=== PATIENT | female | born 1985 | race Caucasian/White ===

== ENCOUNTER 2016-06-28 | Outpatient (CLI) | payer OTHER | END 2016-06-28 17:34 | disposition critical access hospital (66) | CPT/HCPCS: A0425; A0429 ==

== ENCOUNTER 2016-06-28 18:03 | Emergency (ER) | payer OTHER ==
[2016-06-28] MEDS ORDERED: LORazepam 2 MG/ML SYRINGE IVP STA (18:27)
[2016-06-28] MEDS ORDERED: SODIUM CHLORIDE 0.9% 1,000 ML IV ONE (18:27)
[2016-06-28] MEDS ORDERED: LORazepam 2 MG/ML SYRINGE ONE (18:40)
[2016-06-28] MEDS ORDERED: POTASSIUM BICARB 25 MEQ TABLET PO STA (19:15)
[2016-06-28] MEDS ORDERED: POTASSIUM BICARB 25 MEQ TABLET PO ONE (19:19)
== END 2016-06-28 19:38 | disposition home or self-care (01) ==
DX: F41.0 Panic disorder [episodic paroxysmal anxiety] (principal); E87.6 Hypokalemia; R03.0 Elevated blood-pressure reading, without diagnosis of hypertension
CPT/HCPCS: 36415; 80053; 82803; 83690; 93005; 93010; 96374; 99284; A9270; J2060

== ENCOUNTER 2016-11-26 13:56 | Outpatient (CLI) | payer OTHER ==
[2016-11-26 17:49] LABS: BASOPHILS % (AUTO) 0.7 %; EOSINOPHILS # (AUTO) 0.1 10^3/uL (0.0-0.7); EOSINOPHILS % (AUTO) 1.5 %; HCT - HEMATOCRIT 42.6 % (37.0-47.0); HGB - HEMOGLOBIN 14.8 g/dL (12.0-16.0); LYMPHOCYTES % (AUTO) 28.5 %; MEAN CORPUSCULAR HEMOGLOBIN 29.4 pg (27.0-31.0); MEAN CORPUSCULAR HGB CONC 34.7 g/dL (32.0-36.0); MEAN CORPUSCULAR VOLUME 84.8 fL (81.0-99.0); MEAN PLATELET VOLUME 8.3 fL (7.9-10.8); MONOCYTES # (AUTO) 0.4 10^3/uL (0.0-1.0); MONOCYTES % (AUTO) 11.3 %; NEUTROPHILS # (AUTO) 2.1 10^3/uL (1.5-6.6); NUCLEATED RED BLOOD CELLS AUTO 0.2 /100WBC; RED BLOOD COUNT 5.02 10^6/uL (4.20-5.40); RED CELL DISTRIBUTION WIDTH 13.1 % (12.0-15.0); UNCORRECTED WHITE BLOOD COUNT 3.6 x10^3/uL; WHITE BLOOD COUNT 3.6 x10^3/uL (4.8-10.8)
[2016-11-26 18:12] LABS: ALBUMIN/GLOBULIN RATIO 1.8 (1.0-2.2); CALCIUM 9.5 mg/dL (8.5-10.3); CREATININE 0.6 mg/dL (0.4-1.0); POTASSIUM 3.3 mmol/L (3.5-5.0); TOTAL PROTEIN 7.2 g/dL (6.7-8.2)
== END 2016-11-26 13:57 | disposition home or self-care (01) ==
LOC: LAB.F 13:56
PROVIDERS: ATTEND Internal Medicine
DX: F42.9 Obsessive-compulsive disorder, unspecified (principal)
CPT/HCPCS: 36415; 80053; 82306; 84443; 85025

== ENCOUNTER 2017-03-31 12:57 | Outpatient (CLI) | payer OTHER | END 2017-03-31 12:58 | disposition home or self-care (01) | LOC: LAB.R 12:57 | PROVIDERS: ATTEND Internal Medicine | DX: J02.9 Acute pharyngitis, unspecified (principal) | CPT/HCPCS: 87070 ==

== ENCOUNTER → 2017-05-08 | Outpatient (CLI) | payer OTHER ==
[2017-05-08 18:46] LABS: BASOPHILS % (AUTO) 0.3 %; EOSINOPHILS % (AUTO) 0.5 %; HCT - HEMATOCRIT 44.6 % (37.0-47.0); HGB - HEMOGLOBIN 15.4 g/dL (12.0-16.0); LYMPHOCYTES # (AUTO) 1.2 10^3/uL (1.5-3.5); LYMPHOCYTES % (AUTO) 17.8 %; MEAN CORPUSCULAR HEMOGLOBIN 29.4 pg (27.0-31.0); MEAN CORPUSCULAR HGB CONC 34.4 g/dL (32.0-36.0); MEAN CORPUSCULAR VOLUME 85.2 fL (81.0-99.0); MEAN PLATELET VOLUME 8.6 fL (7.9-10.8); MONOCYTES # (AUTO) 0.3 10^3/uL (0.0-1.0); MONOCYTES % (AUTO) 4.6 %; NEUTROPHILS % (AUTO) 76.8 %; NUCLEATED RED BLOOD CELLS AUTO 0.1 /100WBC; RED BLOOD COUNT 5.23 10^6/uL (4.20-5.40); RED CELL DISTRIBUTION WIDTH 13.1 % (12.0-15.0); UNCORRECTED WHITE BLOOD COUNT 6.5 x10^3/uL; WHITE BLOOD COUNT 6.5 x10^3/uL (4.8-10.8)
== END ==
LOC: LAB.F 13:52
PROVIDERS: ATTEND Nurse Practitioner Family
DX: R07.9 Chest pain, unspecified (principal); E87.6 Hypokalemia
CPT/HCPCS: 36415; 84132; 84443; 85025

== ENCOUNTER 2017-05-11 13:23 | Outpatient (CLI) | payer OTHER | END 2017-05-11 13:24 | disposition EMS.NT | LOC: EMS 13:23 | PROVIDERS: ATTEND Surgery | DX: R07.89 Other chest pain (principal) ==

== ENCOUNTER 2017-05-29 10:11 | Outpatient (CLI) | payer OTHER ==
[2017-05-29 18:42] LABS: CHOL/HDL RATIO 4.7 (<4.4); CHOLESTEROL 202 mg/dL; HDL CHOLESTEROL 43 mg/dL; LDL/HDL RATIO 3.4 (<4.4); TRIGLYCERIDES 56 mg/dL; VLDL CHOLESTEROL 11 mg/dL
[2017-05-29 19:35] LABS: HEMOGLOBIN A1C 0.47 g/dL
== END 2017-05-29 10:12 | disposition home or self-care (01) ==
LOC: LAB.F 10:11
PROVIDERS: ATTEND Obstetrics & Gynecology
DX: Z13.1 Encounter for screening for diabetes mellitus (principal)
CPT/HCPCS: 36415; 80061; 83036; 84443

== ENCOUNTER 2017-06-22 13:53 | Outpatient (CLI) | payer OTHER ==
--- NOTE | 2017-06-22 17:33 | Ultrasound Report ---
DATE OF SERVICE: 06/22/2017 RIGHT BREAST ULTRASOUND: 06/22/2017 CLINICAL INDICATION: Tender palpable abnormality lateral right breast. TECHNIQUE: Real-time scanning was performed with customer sales representative static images obtained. FINDINGS: Ultrasound of the region of tenderness identified by the patient was performed. Unremarkable parenchymal lobules are seen. No discrete solid or cystic lesion is appreciated. No sonographically suspicious findings are identified. IMPRESSION: NEGATIVE EXAMINATION. RECOMMENDATION: ROUTINE ANNUAL SCREENING UNLESS OTHERWISE CLINICALLY INDICATED (PATIENT'S MOTHER DIAGNOSED WITH BREAST CANCER AT AGE 34). BIRADS CATEGORY 1-NEGATIVE. TD: 06/22/2017 18:32 [email or web address]
--- NOTE | 2017-06-22 17:39 | Mammography Report ---
DATE OF SERVICE: 06/22/2017 DIGITAL DIAGNOSTIC BILATERAL MAMMOGRAM: 06/22/2017 CLINICAL INDICATION: Tender palpable abnormality 9 o'clock right breast per patient. TECHNIQUE: Bilateral CC, MLO, laterally exaggerated CC views, right true lateral view. A marker was placed at the site of the tender palpable abnormality identified by the patient. This is the patient's baseline mammogram. FINDINGS: The breasts demonstrate heterogeneously dense fibroglandular parenchyma bilaterally. No suspicious masses, clustered microcalcifications, or regions of architectural distortion are identified. Specifically, no mammographic abnormality is appreciated at the 9 o'clock position of the right breast, at the site indicated by the marker. Please also refer to right breast ultrasound of the same day. IMPRESSION: NEGATIVE EXAMINATION. RECOMMENDATION: ROUTINE ANNUAL SCREENING UNLESS OTHERWISE CLINICALLY INDICATED (PATIENT'S MOTHER DIAGNOSED WITH BREAST CANCER AT AGE 34). BIRADS CATEGORY 1-NEGATIVE. STANDARD QUALIFYING STATEMENTS: 1. This examination was reviewed with the aid of Computer-Aided Detection (CAD). 2. A negative or benign imaging report should not delay biopsy if clinically suspicious findings are present. Consider surgical consultation if warranted. More than 5% of cancers are not identified by imaging. 3. Dense breasts may obscure an underlying neoplasm. TD: 06/22/2017 18:38
== END 2017-06-22 13:54 | disposition home or self-care (01) ==
LOC: DI 13:53
PROVIDERS: ATTEND Obstetrics & Gynecology
DX: N63.10 Unspecified lump in the right breast, unspecified quadrant (principal)
CPT/HCPCS: 76642; 77066

== ENCOUNTER 2017-06-26 11:15 | Outpatient (CLI) | payer OTHER | END 2017-06-26 11:16 | disposition home or self-care (01) | LOC: NS 11:15 | PROVIDERS: ATTEND Obstetrics & Gynecology | DX: Z71.3 Dietary counseling and surveillance (principal); R73.09 Other abnormal glucose; E78.5 Hyperlipidemia, unspecified; Z68.25 Body mass index [BMI] 25.0-25.9, adult | CPT/HCPCS: 97802 ==

== ENCOUNTER 2017-10-21 08:00 | Outpatient (CLI) | payer OTHER ==
[2017-10-22 10:45] LABS: ALBUMIN 4.5 g/dL (3.2-5.5); ALBUMIN/GLOBULIN RATIO 1.6 (1.0-2.2); BILIRUBIN,TOTAL 0.9 mg/dL (0.2-1.0); CALCIUM 9.4 mg/dL (8.5-10.3); CREATININE 0.4 mg/dL (0.4-1.0); TOTAL PROTEIN 7.3 g/dL (6.7-8.2)
[2017-10-22 10:47] LABS: BASOPHILS % (AUTO) 0.4 %; EOSINOPHILS # (AUTO) 0.1 10^3/uL (0.0-0.7); EOSINOPHILS % (AUTO) 1.2 %; HGB - HEMOGLOBIN 14.2 g/dL (12.0-16.0); LYMPHOCYTES # (AUTO) 1.7 10^3/uL (1.5-3.5); LYMPHOCYTES % (AUTO) 26.3 %; MEAN CORPUSCULAR HEMOGLOBIN 29.5 pg (27.0-31.0); MEAN CORPUSCULAR HGB CONC 34.3 g/dL (32.0-36.0); MEAN CORPUSCULAR VOLUME 85.8 fL (81.0-99.0); MEAN PLATELET VOLUME 8.6 fL (7.9-10.8); MONOCYTES # (AUTO) 0.3 10^3/uL (0.0-1.0); MONOCYTES % (AUTO) 4.6 %; NEUTROPHILS # (AUTO) 4.5 10^3/uL (1.5-6.6); NEUTROPHILS % (AUTO) 67.5 %; PLT - PLATELET COUNT 252 10^3/uL (130-450); RED BLOOD COUNT 4.81 10^6/uL (4.20-5.40); RED CELL DISTRIBUTION WIDTH 13.8 % (12.0-15.0); WHITE BLOOD COUNT 6.7 x10^3/uL (4.8-10.8)
== END 2017-10-21 08:01 | disposition home or self-care (01) ==
LOC: LAB.F 08:00
PROVIDERS: ATTEND Physician Assistant Medical
DX: R53.83 Other fatigue (principal); R42 Dizziness and giddiness; Z86.39 Personal history of other endocrine, nutritional and metabolic disease
CPT/HCPCS: 36415; 80053; 84443; 85025

== ENCOUNTER 2017-11-15 13:55 | Outpatient (CLI) | payer OTHER ==
--- NOTE | 2017-11-15 14:51 | XRAY Report ---
EXAM: CHEST RADIOGRAPHY EXAM DATE: 11/15/2017 02:18 PM. CLINICAL HISTORY: DYSPNEA ON EXERTION. COMPARISON: None. TECHNIQUE: 2 views. FINDINGS: Lungs/Pleura: No dense consolidation. No large effusion or pneumothorax. No pulmonary edema. Mediastinum: Heart and mediastinal contours are unremarkable. Other: None. IMPRESSION: No acute radiographic pulmonary abnormalities. [facility] Referring Provider Line: [phone] SITE ID: [id number]
== END 2017-11-15 13:56 | disposition home or self-care (01) ==
LOC: DI 13:55
PROVIDERS: ATTEND Internal Medicine
DX: R06.00 Dyspnea, unspecified (principal)
CPT/HCPCS: 71046

== ENCOUNTER 2017-11-29 08:11 | Outpatient (CLI) | END 2017-11-29 08:12 | disposition home or self-care (01) ==

== ENCOUNTER 2018-04-21 14:58 | Outpatient (CLI) | payer MEDICAID ==
--- NOTE | 2018-04-22 09:06 | Ultrasound Report ---
Reason: ABDOMINAL PULSATILE MASS, VENTRAL HERNIA, BACK THOM Procedure Date: 04/21/2018 Accession Number: [id number] / [id number] Procedure: US - Abdomen Complete CPT Code: FULL RESULT: EXAM: ABDOMEN ULTRASOUND EXAM DATE: 04/21/2018 03:21 PM. CLINICAL HISTORY: Abdominal pulsatile mass, ventral hernia, back pain. COMPARISON: None. TECHNIQUE: Real-time scanning was performed with static images obtained. FINDINGS: Liver: Normal in size and echotexture. 13.3 cm. Main portal vein flow: Hepatopetal. Gallbladder: Normal. No stones, wall thickening, or sonographic Thompson's sign. Biliary System: Common bile duct measures 3.1 mm. No intrahepatic or extrahepatic ductal dilatation. Pancreas: Visualized portion is unremarkable. Kidneys: Right: 10.3 cm longitudinally. Normal. No contour-deforming mass, stones, or hydronephrosis. Left: 11.1 cm longitudinally. Normal. No contour-deforming mass, stones, or hydronephrosis. Spleen: 9.7 x 5.3 x 5.6 cm. Normal in size and echotexture. Aorta and Inferior Vena Cava: Unremarkable. Other: Provided sonographic images are measuring a focal area of fat which is traversing a fascial plane external to the abdominal wall; this is described on bottom stainer notes as representing an abdominal wall hernia. The visualized abdominal wall appears intact on these ultrasound images. IMPRESSION: Normal abdomen ultrasound. If there is persistent clinical concern of abdominal wall hernia, consider CT. [facility]
== END 2018-04-21 14:59 | disposition home or self-care (01) ==
LOC: DI 14:58
PROVIDERS: ATTEND Physician Assistant Medical
DX: R09.89 Other specified symptoms and signs involving the circulatory and respiratory systems (principal); K43.9 Ventral hernia without obstruction or gangrene; M54.5 Low back pain; R10.9 Unspecified abdominal pain
CPT/HCPCS: 76700

== ENCOUNTER 2019-06-17 08:00 | Outpatient (CLI) | payer SELFPAY | END 2019-06-17 23:59 | disposition home or self-care (01) | LOC: LAB.R 08:00 | PROVIDERS: ATTEND Physician Assistant Medical | DX: R10.11 Right upper quadrant pain (principal) | CPT/HCPCS: 87086 ==

== ENCOUNTER 2019-06-25 10:55 | Outpatient (CLI) | payer SELFPAY ==
--- NOTE | 2019-06-26 16:26 | Ultrasound Report ---
Reason: FLANK PAIN RT, CONTUSION OF ABD WALL Procedure Date: 06/25/2019 Accession Number: [id number] / [id number] Procedure: US - Abdomen Limited CPT Code: Final Report FULL RESULT: EXAM: ULTRASOUND ABDOMEN LIMITED, RIGHT UPPER QUADRANT AND PELVIS/RIGHT ABDOMINAL WALL LIMITED EXAM DATE: 06/25/2019 12:30 PM HISTORY: FLANK PAIN RT, CONTUSION OF ABD WALL COMPARISON: ABDOMEN COMPLETE 04/21/2018 3:21 PM TECHNIQUE: Real-time scanning was performed with static images obtained. FINDINGS: Pancreas: Visualized portion is unremarkable. Liver: Mildly coarsened echotexture might be from the steatosis. No focal lesions. Length is 14.5 cm. Main portal vein flow: Hepatopetal. Gallbladder: Normal. No stones, wall thickening, or sonographic Thompson's sign. Biliary Ducts: Common bile duct measures 4.1 mm. No intrahepatic or extrahepatic ductal dilatation. Right Kidney: 10.1 cm longitudinally. Normal. No contour-deforming mass, stones, or hydronephrosis. Other: In the area of concern at the anterior abdominal wall towards the right side there are homogeneous tissues. No fluid collection, mass lesion or large tissue defect is identified. No apparent hernia identified. IMPRESSION: Possible mild hepatic steatosis. Otherwise unremarkable right upper quadrant ultrasound. Essentially unremarkable mid/right lower abdominal wall. [facility]
== END 2019-06-25 10:56 | disposition home or self-care (01) ==
LOC: DI 10:55
PROVIDERS: ATTEND Physician Assistant Medical
DX: R10.9 Unspecified abdominal pain (principal); S30.1XXA Contusion of abdominal wall, initial encounter
CPT/HCPCS: 76705

== ENCOUNTER 2019-10-05 01:08 | Emergency (ER) | payer SELFPAY ==
--- NOTE | 2019-10-05 01:19 | ED Physician Documentation ---
History of Present Illness - Stated complaint Stated Complaint: CHEST PRESSURE/ICY/HOT LT ARM/AXIETY - Chief complaint Chief Complaint: Heent - History obtained from History obtained from: Patient (The patient is a 34-year-old female who presents with a chief complaint of anxiety and panic attack.The patient reports she recently was given a prescription by her primary care provider for Ativan however she has been unable to fill this prescription tonight she is feeling some feelings of panic and anxiety she denies any auditory or suicidal thoughts denies any syncope or lower extremity swelling denies any exogenous estrogen use no history of pulmonary embolism or DVT denies any recent periods of stasis or surgeries denies any personal family history of hypercoagulability. Denies any illicit drug use.Denies any history of VT or stroke. Denies any recent cough or fevers.) Review of Systems Constitutional: reports: Reviewed and negative Eyes: reports: Reviewed and negative Ears: reports: Reviewed and negative Nose: reports: Reviewed and negative Throat: reports: Reviewed and negative Cardiac: reports: Palpitations Respiratory: reports: Reviewed and negative GI: reports: Reviewed and negative : reports: Reviewed and negative Skin: reports: Reviewed and negative Musculoskeletal: reports: Reviewed and negative Neurologic: reports: Reviewed and negative Psychiatric: reports: Anxiety Endocrine: reports: Reviewed and negative Immunocompromised: reports: Reviewed and negative PD PAST MEDICAL HISTORY - Past Medical History Cardiovascular: None Respiratory: None Neuro: None Endocrine/Autoimmune: None Psych: Depression, Anxiety, Post traumatic stress disorder - Past Surgical History Past Surgical History: Yes HEENT: Tonsil/Adenoidectomy - Present Medications Home Medications: Ambulatory Orders Medication Instructions Recorded Confirmed Lorazepam [Ativan] 1 mg PO TID PRN #7 tablet 06/28/16 Sertraline [Zoloft] 1 tab PO DAILY 06/01/18 06/01/18 Hydrocodone/Acetaminophen [Ovid 1 each PO Q6H PRN #12 tablet 06/02/18 5-325 Tablet] Ondansetron Odt [Zofran] 4 mg TL Q6H PRN #10 tablet 06/02/18 dexAMETHasone [Decadron] 4 mg PO DAILY #5 tablet 06/02/18 - Allergies Allergies/Adverse Reactions: Allergies Allergy/AdvReac Type Severity Reaction Status Date / Time codeine AdvReac Emesis Verified 10/05/19 01:19 - Social History Does the pt smoke?: No Smoking Status: Never smoker Does the pt drink ETOH?: Yes Does the pt have substance abuse?: No PD ED PE NORMAL - Vitals Vital signs reviewed: Yes - General General: Alert and oriented X 3, No acute distress, Well developed/nourished - HEENT HEENT: Atraumatic, PERRL, Moist mucous membranes, Pharynx benign - Neck Neck: Supple, no meningeal sign, No adenopathy, Thyroid normal - Cardiac Cardiac: RRR, No murmur, Strong equal pulses - Respiratory Respiratory: No respiratory distress, Clear bilaterally - Abdomen Abdomen: Normal bowel sounds, Soft, Non tender, Non distended, No organomegaly - Back Back: No CVA TTP, No spinal TTP - Derm Derm: Normal color, Warm and dry, No rash - Extremities Extremities: No deformity, No tenderness to palpate, Normal ROM s pain, No edema, No calf tenderness / cord - Neuro Neuro: Alert and oriented X 3, 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, No motor deficit, No sensory deficit, Normal speech - Psych Psych: Other (anxious) Results - Vitals Vitals: Vital Signs - 24 hr 10/05/19 10/05/19 10/05/19 01:16 02:05 02:15 Heart Rate 87 77 Respiratory 16 17 17 Rate Blood Pressure 141/109 H 127/98 H O2 Saturation 99 100 10/05/19 10/05/19 10/05/19 02:45 03:15 03:18 Heart Rate 72 Respiratory 15 16 16 Rate Blood Pressure 122/92 H O2 Saturation 99 Oxygen O2 Source Room air - EKG (time done) 01:34 Rate: Other (no stemi) PD MEDICAL DECISION MAKING - ED course Complexity details: considered differential (History and exam are consistent with panic attack and anxiety chest x-ray is unremarkable EKG is unremarkable patient has good follow-up with her primary care provider tomorrow.Her heart score is 0 and her PERC is 0.) Departure - Departure Disposition: 01 Home, Self Care Clinical Impression: Anxiety Condition: Stable Instructions: ED Panic Attack Follow-Up: Jane Santana ARNP [Primary Care Provider] - 10/05/19 Discharge Date/Time: 10/05/19 03:28
[2019-10-05] MEDS ORDERED: LORazepam 1 MG TABLET PO STA (01:59)
--- NOTE | 2019-10-05 02:45 | XRAY Report ---
Reason: cp Procedure Date: 10/05/2019 Accession Number: [id number] / [id number] Procedure: XR - Chest 2 View X-Ray CPT Code: 37676 Final Report FULL RESULT: EXAM: CHEST RADIOGRAPHY EXAM DATE: 10/05/2019 02:29 AM. CLINICAL HISTORY: Chest pain COMPARISON: CHEST 2 VIEW 11/15/2017 2:10 PM. TECHNIQUE: 2 views. FINDINGS: Lungs/Pleura: No focal opacities evident. No pleural effusion. No pneumothorax. Normal volumes. Mediastinum: Heart and mediastinal contours are unremarkable. Other: None. IMPRESSION: Stable negative 2-view chest radiography. [facility]
[2019-10-05 03:16] VITALS: BP 122/92
== END 2019-10-05 03:28 | disposition home or self-care (01) ==
LOC: ED 01:08
DX: F41.9 Anxiety disorder, unspecified (principal)
CPT/HCPCS: 71046; 93005; 99283; 99284; J8499

== ENCOUNTER 2020-03-02 04:05 | Emergency (ER) | payer SELFPAY ==
--- NOTE | 2020-03-02 04:14 | ED Physician Documentation ---
History of Present Illness - Stated complaint Stated Complaint: SOA - History obtained from History obtained from: Patient - Additonal information Additional information: Patient is a 34-year-old female presents with multiple complaints today. She reports that she has been having back pain and she is been going to the chiropractor where she has been receiving thoracic adjustments and is now complaining of pain that radiates to her left arm and an overall sensation of not feeling well. She denies fevers or lower extremity swelling or hemoptysis or any history of pulmonary embolism or DVT. Occasionally she feels lightheaded without a headache and reports occasional nausea as well.She reports she has a history of anxiety and at one point had been taking sertraline but currently is not taking any daily medications.She reports in the past she has had episodes of low potassium that is caused her to have a similar feeling.Denies vomiting denies alcohol or drug use.Denies any family history of sudden in mother, father, brother sister. Review of Systems Constitutional: reports: Chills, Myalgias, Fatigue Eyes: reports: Reviewed and negative Ears: reports: Reviewed and negative Nose: reports: Reviewed and negative Throat: reports: Reviewed and negative Cardiac: reports: Palpitations Respiratory: reports: Dyspnea GI: reports: Nausea : reports: Reviewed and negative Skin: reports: Reviewed and negative Musculoskeletal: reports: Extremity pain Neurologic: reports: Generalized weakness Psychiatric: reports: Reviewed and negative Endocrine: reports: Reviewed and negative Immunocompromised: reports: Reviewed and negative PD PAST MEDICAL HISTORY - Past Medical History Cardiovascular: None Respiratory: None Neuro: None Endocrine/Autoimmune: None GI: GERD SOFTWARE SALES MANAGER: None : None HEENT: None Psych: Depression, Anxiety, Post traumatic stress disorder Musculoskeletal: None Derm: None - Past Surgical History Past Surgical History: Yes HEENT: Tonsil/Adenoidectomy - Present Medications Home Medications: Ambulatory Orders Medication Instructions Recorded Confirmed Lorazepam [Ativan] 1 mg PO TID PRN #7 tablet 06/28/16 Sertraline [Zoloft] 1 tab PO DAILY 06/01/18 06/01/18 Hydrocodone/Acetaminophen [[place] 1 each PO Q6H PRN #12 tablet 06/02/18 5-325 Tablet] Ondansetron Odt [Zofran] 4 mg TL Q6H PRN #10 tablet 06/02/18 dexAMETHasone [Decadron] 4 mg PO DAILY #5 tablet 06/02/18 - Allergies Allergies/Adverse Reactions: Allergies Allergy/AdvReac Type Severity Reaction Status Date / Time codeine AdvReac Emesis Verified 03/02/20 04:20 - Social History Does the pt smoke?: No Smoking Status: Never smoker Does the pt drink ETOH?: Yes Does the pt have substance abuse?: No - Immunizations Immunizations are current?: No - POLST Patient has POLST: No PD ED PE NORMAL - Vitals Vital signs reviewed: Yes - General General: Alert and oriented X 3, No acute distress, Well developed/nourished - HEENT HEENT: Atraumatic, PERRL, EOMI, Ears normal, Moist mucous membranes, Pharynx benign, Dentition benign - Neck Neck: Supple, no meningeal sign, No bony TTP, No adenopathy, Thyroid normal, No JVD, No bruit - Cardiac Cardiac: RRR, No murmur, No gallop, No rub, Strong equal pulses - Respiratory Respiratory: No respiratory distress, Clear bilaterally - Abdomen Abdomen: Normal bowel sounds, Soft, Non tender, Non distended, No organomegaly - Back Back: No CVA TTP, No spinal TTP - Derm Derm: Normal color, Warm and dry, No rash - Extremities Extremities: No deformity, No tenderness to palpate, Normal ROM s pain, No edema, No calf tenderness / cord - Neuro Neuro: Alert and oriented X 3, 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 ) - Labs Labs: Laboratory Tests 03/02/20 03/02/20 03/02/20 04:50 04:50 04:50 WBC 5.3 RBC 4.88 Hgb 14.9 Hct 41.4 MCV 84.8 MCH 30.5 MCHC 36.0 RDW 11.9 L Plt Count 222 MPV 10.0 Neut # (Auto) 3.4 Lymph # (Auto) 1.4 L [place] # (Auto) 0.4 Eos # (Auto) 0.1 Baso # (Auto) 0.0 Absolute Nucleated RBC 0.00 Nucleated RBC % 0.0 PT 12.9 H INR 1.2 APTT 29.7 D-Dimer 216.6 Sodium 137 Potassium 3.2 L Chloride 108 Carbon Dioxide 20 L Anion Gap 9.0 BUN 14 Creatinine 0.6 Estimated GFR (MDRD) 114 Glucose 103 H Calcium 9.4 Magnesium 1.9 Total Bilirubin 0.9 AST 36 ALT 76 H Alkaline Phosphatase 37 L Troponin I High Sens Total Protein 7.4 Albumin 4.8 Globulin 2.6 Albumin/Globulin Ratio 1.8 Lipase 31 Urine Color Urine Clarity Urine pH Ur Specific [place] Urine Protein Urine Glucose (UA) Urine Ketones Urine Occult Blood Urine Nitrite Urine Bilirubin Urine Urobilinogen Ur Leukocyte Esterase Ur Microscopic Review Urine Culture Comments Urine HCG, Qual 03/02/20 03/02/20 04:50 04:50 WBC RBC Hgb Hct MCV MCH MCHC RDW Plt Count MPV Neut # (Auto) Lymph # (Auto) [place] # (Auto) Eos # (Auto) Baso # (Auto) Absolute Nucleated RBC Nucleated RBC % PT INR APTT D-Dimer Sodium Potassium Chloride Carbon Dioxide Anion Gap BUN Creatinine Estimated GFR (MDRD) Glucose Calcium Magnesium Total Bilirubin AST ALT Alkaline Phosphatase Troponin I High Sens < 2.3 L Total Protein Albumin Globulin Albumin/Globulin Ratio Lipase Urine Color YELLOW Urine Clarity CLEAR Urine pH 6.0 Ur Specific [place] <=1.005 Urine Protein NEGATIVE Urine Glucose (UA) NEGATIVE Urine Ketones TRACE Urine Occult Blood NEGATIVE Urine Nitrite NEGATIVE Urine Bilirubin NEGATIVE Urine Urobilinogen 0.2 (NORMAL) Ur Leukocyte Esterase NEGATIVE Ur Microscopic Review NOT INDICATED Urine Culture Comments NOT INDICATED Urine HCG, Qual NEGATIVE PD MEDICAL DECISION MAKING - ED course Complexity details: reviewed old records, reviewed results, re-evaluated patient, considered differential, d/w patient, d/w family ED course: Patient is an otherwise healthy 34-year-old female presents with vague symptoms to include some left arm and back pain after she went to a chiropractor also some generalized weakness she reports it feels similar to when she had an episode of low potassium previously. Her potassium is 3.2 today it was replaced orally and she is tolerated p.o. challenge she also is complaining of feeling dehydrated she did receive 1 L of IV fluids she has a steady gait she is afebrile and has good follow-up care. She has a negative chest x-ray negative EKG and negative troponin as well as a negative d-dimer.We will have the patient follow-up with her primary care provider today. Departure - Departure Disposition: Home, Self Care Clinical Impression: Hypokalemia Condition: Stable Instructions: Hypokalemia Dc Follow-Up: Jane Santana ARNP [Primary Care Provider] - 03/02/20 Comments: Please follow-up with your primary care provider today. Return to the emergency department with any concerns. Discharge Date/Time: 03/02/20 05:51
[2020-03-02] MEDS ORDERED: SODIUM CHLORIDE 0.9% 1,000 ML IV STA (04:32)
[2020-03-02 04:57] LABS: BASOPHILS % (AUTO) 0.4 %; EOSINOPHILS # (AUTO) 0.1 10^3/uL (0.0-0.7); EOSINOPHILS % (AUTO) 1.7 %; HGB - HEMOGLOBIN 14.9 g/dL (12.0-16.0); LYMPHOCYTES # (AUTO) 1.4 10^3/uL (1.5-3.5); LYMPHOCYTES % (AUTO) 27.1 %; MEAN CORPUSCULAR HEMOGLOBIN 30.5 pg (27.0-31.0); MEAN CORPUSCULAR VOLUME 84.8 fL (81.0-99.0); MONOCYTES # (AUTO) 0.4 10^3/uL (0.0-1.0); MONOCYTES % (AUTO) 7.5 %; NEUTROPHILS # (AUTO) 3.4 10^3/uL (1.5-6.6); NEUTROPHILS % (AUTO) 63.1 %; PLT - PLATELET COUNT 222 10^3/uL (130-450); RED BLOOD COUNT 4.88 10^6/uL (4.20-5.40); RED CELL DISTRIBUTION WIDTH 11.9 % (12.0-15.0); WHITE BLOOD COUNT 5.3 x10^3/uL (4.8-10.8)
[2020-03-02 05:02] LABS: BILIRUBIN,URINE NEGATIVE (NEGATIVE); CLARITY,URINE CLEAR (CLEAR); GLUCOSE, URINE (UA) NEGATIVE (NEGATIVE); KETONES,URINE (UA) TRACE mg/dL (NEGATIVE); LEUKOCYTE ESTERASE, URINE NEGATIVE (NEGATIVE); NITRITE,URINE NEGATIVE (NEGATIVE); OCCULT BLOOD,URINE NEGATIVE (NEGATIVE); PROTEIN,URINE NEGATIVE (NEGATIVE); UROBILINOGEN,URINE 0.2 (NORMAL) E.U./dL (NORMAL)
[2020-03-02 05:04] LABS: HCG UR QUAL NEGATIVE
[2020-03-02 05:09] LABS: ALBUMIN 4.8 g/dL (3.2-5.5); ALBUMIN/GLOBULIN RATIO 1.8 (1.0-2.2); BILIRUBIN,TOTAL 0.9 mg/dL (0.2-1.0); CALCIUM 9.4 mg/dL (8.5-10.3); CREATININE 0.6 mg/dL (0.4-1.0); MAGNESIUM 1.9 mg/dL (1.7-2.8); TOTAL PROTEIN 7.4 g/dL (6.7-8.2)
[2020-03-02] MEDS ORDERED: POTASSIUM CHLORIDE 20 MEQ TABLET PO STA (05:15)
[2020-03-02 05:19] LABS: INR 1.2 (0.8-1.2); PT - PROTHROMBIN TIME 12.9 secs (9.9-12.6)
[2020-03-02 05:27] LABS: PARTIAL THROMBOPLASTIN TIME 29.7 secs (24.9-33.3)
[2020-03-02 05:33] LABS: D-DIMER 216.6 ng/mL (200.0-255.0)
[2020-03-02 05:51] VITALS: BP 134/88
--- NOTE | 2020-03-02 08:37 | XRAY Report ---
PROCEDURE: Chest 1 View X-Ray INDICATIONS: sob TECHNIQUE: One view of the chest was acquired. COMPARISON: 10/05/2019 FINDINGS: Surgical changes and devices: None. Lungs and pleura: No pleural effusions or pneumothorax. Lungs are clear. Mediastinum: Mediastinal contours appear normal. Heart size is normal. Bones and chest wall: No suspicious bony lesions. Overlying soft tissues appear unremarkable. IMPRESSION: No acute cardiopulmonary disease process. Reviewed by: Swapna Rosales MD, PhD on 03/02/2020 8:36 AM PDT Approved by: Swapan Rosales MD, PhD on 03/02/2020 8:36 AM PDT Station ID: [id number]
== END 2020-03-02 05:51 | disposition home or self-care (01) ==
LOC: ED 04:05
DX: E87.6 Hypokalemia (principal)
CPT/HCPCS: 36415; 71045; 80053; 81003; 81025; 83690; 83735; 84484; 85025; 85379; 85610; 85730; 93005; 96360; 99284; A9270; 81001; 87086

== ENCOUNTER 2020-07-05 01:25 | Emergency (ER) | payer OTHER ==
--- NOTE | 2020-07-05 01:39 | ED Physician Documentation ---
PD HPI DYSPNEA - Stated complaint Stated Complaint: SOA - Chief complaint Chief Complaint: Cardiac - History obtained from History obtained from: Patient - History of Present Illness Timing - onset: How many hours ago (1) Timing - duration: Hours (1) Timing - details: Abrupt onset (She awoke from sleep with feeling of chest tightness/ dyspnea, and some upper abd discomfort. Not pain per se. Fluttering feeling in chest. Had some feeling of fullness in stomach earlier in evening with some feeling of anxious. But was feeling okay at time of going to sleep.) Inciting event(s): No: Out of meds (denies current benzo/antidepressant Rx), URI Improved by: Sitting up (initially needed to sit up to feel better, subsequently did not worsen lying back down. But not improved.) Associated symptoms: No: Fever, Cough, Hemoptysis, Wheezing, Bilateral edema, Unilateral edema Similar symptoms before: No diagnosis (has had panic attacks in the past, but this felt different and occured from sleep, which has not happened in the past.) Recently seen: Not recently seen Review of Systems Constitutional: denies: Fever, Chills Nose: denies: Rhinorrhea / runny nose, Congestion Throat: denies: Sore throat Cardiac: reports: Palpitations. denies: Pedal edema, Calf pain Respiratory: denies: Cough GI: reports: Nausea. denies: Vomiting, Diarrhea Skin: denies: Rash, Lesions PD PAST MEDICAL HISTORY - Past Medical History Past Medical History: Yes Cardiovascular: None Respiratory: None Neuro: None Endocrine/Autoimmune: None GI: [employer]: None : None HEENT: None Psych: Depression, Anxiety, Post traumatic stress disorder Musculoskeletal: None Derm: None - Past Surgical History Past Surgical History: Yes HEENT: Tonsil/Adenoidectomy - Present Medications Home Medications: Ambulatory Orders Medication Instructions Recorded Confirmed Famotidine [Pepcid] 20 mg PO DAILY #20 tablet 07/05/20 - Allergies Allergies/Adverse Reactions: Allergies Allergy/AdvReac Type Severity Reaction Status Date / Time codeine AdvReac Emesis Verified 07/05/20 01:37 - Living Situation Living Situation: reports: With spouse/s.o. Living Arrangement: reports: At home - Social History Does the pt smoke?: No Smoking Status: Never smoker Does the pt drink ETOH?: Yes ETOH Use: Other (occasional) Does the pt have substance abuse?: No - Immunizations Immunizations are current?: No - POLST Patient has POLST: No PD ED PE NORMAL - Vitals Vital signs reviewed: Yes - General General: Alert and oriented X 3, No acute distress, Well developed/nourished - HEENT HEENT: Moist mucous membranes, Pharynx benign - Neck Neck: Supple, no meningeal sign, No adenopathy - Cardiac Cardiac: RRR, No murmur - Respiratory Respiratory: Clear bilaterally - Abdomen Abdomen: Normal bowel sounds, Soft, Non distended, No organomegaly, Other (mild epigasric tenderness without guarding. ) - Back Back: No CVA TTP - Derm Derm: Normal color, Warm and dry - Extremities Extremities: No tenderness to palpate, Normal ROM s pain, No edema, No calf tenderness / cord - Neuro Neuro: Alert and oriented X 3, No motor deficit, Normal speech - Psych Psych: Normal mood, Normal affect Results - Vitals Vitals: Vital Signs - 24 hr 07/05/20 07/05/20 07/05/20 01:33 02:05 02:31 Temperature 36.8 C Heart Rate 75 83 Respiratory 18 16 16 Rate Blood Pressure 137/90 H 110/78 O2 Saturation 95 97 07/05/20 07/05/20 07/05/20 03:07 03:08 03:20 Temperature Heart Rate 79 81 Respiratory 15 15 Rate Blood Pressure 113/84 H O2 Saturation 100 07/05/20 03:26 Temperature 36.8 C Heart Rate 81 Respiratory 15 Rate Blood Pressure 113/84 H O2 Saturation 100 Oxygen O2 Source Room air - EKG (time done) 01:37 Rate: Rate (enter#) (91) Rhythm: NSR [place]: Normal Intervals: Normal AR QRS: Normal Ischemia: Normal ST segments. No: ST elevation c/w ischemia, ST depression - Labs Labs: Laboratory Tests 07/05/20 07/05/20 02:12 02:12 WBC 6.1 RBC 4.67 Hgb 14.1 Hct 39.9 MCV 85.4 MCH 30.2 MCHC 35.3 RDW 12.2 Plt Count 215 MPV 9.5 Neut # (Auto) 3.7 Lymph # (Auto) 1.7 [place] # (Auto) 0.5 Eos # (Auto) 0.1 Baso # (Auto) 0.0 Absolute Nucleated RBC 0.00 Nucleated RBC % 0.0 Sodium 142 Potassium 3.3 L Chloride 104 Carbon Dioxide 23 Anion Gap 15.0 H BUN 18 Creatinine 0.6 Estimated GFR (MDRD) 114 Glucose 103 H Calcium 9.4 Total Bilirubin 0.7 AST 24 ALT 38 Alkaline Phosphatase 37 L Total Protein 7.0 Albumin 4.5 Globulin 2.5 Albumin/Globulin Ratio 1.8 Lipase 33 - Rads (name of study) RUQ abd U/S Radiology: Prelim report reviewed (no acute findings. No stones. Normal gall bladder. ), See rad report PD MEDICAL DECISION MAKING - ED course Complexity details: reviewed results, re-evaluated patient (improved with some GI meds. ), considered differential (prior episodes with normal EKGs. Had ECHO 2018 that was normal. No findings of heart/pulmonary on prior visits. ), d/w patient Departure - Departure Disposition: 01 Home, Self Care Clinical Impression: Epigastric discomfort Dyspnea Qualifiers: Dyspnea type: shortness of breath Qualified Code(s): R06.02 - Shortness of breath Condition: Stable Record reviewed to determine appropriate education?: Yes Instructions: ED Epigastric Pain [facility] Follow-Up: Jane Santana ARNP [Primary Care Provider] - Prescriptions: Famotidine [Pepcid] 20 mg PO DAILY #20 tablet Comments: Your EKG and vital signs and blood tests appear good. Ultrasound did not show any signs of gallbladder problems. At this point there is not an obvious cause or diagnosis for the episode you had. My thought would be possibly some acid reflux and esophageal spasm based on the symptoms, given that other tests are okay. I would suggest using famotidine acid reducing medicine daily for the next 2 to 3 weeks. If you have similar episodes, you can try antacids such as Maalox or Mylanta and see if that helps. Otherwise follow-up with your primary care if further episodes. Discharge Date/Time: 07/05/20 03:29
[2020-07-05] MEDS ORDERED: MAG HYDROX/AL HYDROX/SIMETH 30 ML UDC PO STA (02:02)
[2020-07-05] MEDS ORDERED: LIDOCAINE VISCOUS 2% 15 ML UDC MM STA (02:02)
[2020-07-05 02:14] LABS: BASOPHILS % (AUTO) 0.5 %; EOSINOPHILS # (AUTO) 0.1 10^3/uL (0.0-0.7); HGB - HEMOGLOBIN 14.1 g/dL (12.0-16.0); LYMPHOCYTES # (AUTO) 1.7 10^3/uL (1.5-3.5); MEAN CORPUSCULAR HEMOGLOBIN 30.2 pg (27.0-31.0); MEAN CORPUSCULAR HGB CONC 35.3 g/dL (32.0-36.0); MEAN CORPUSCULAR VOLUME 85.4 fL (81.0-99.0); MEAN PLATELET VOLUME 9.5 fL (7.9-10.8); MONOCYTES # (AUTO) 0.5 10^3/uL (0.0-1.0); MONOCYTES % (AUTO) 8.2 %; NEUTROPHILS # (AUTO) 3.7 10^3/uL (1.5-6.6); NEUTROPHILS % (AUTO) 61.1 %; PLT - PLATELET COUNT 215 10^3/uL (130-450); RED BLOOD COUNT 4.67 10^6/uL (4.20-5.40); RED CELL DISTRIBUTION WIDTH 12.2 % (12.0-15.0); WHITE BLOOD COUNT 6.1 x10^3/uL (4.8-10.8)
[2020-07-05 02:28] LABS: ALBUMIN 4.5 g/dL (3.2-5.5); ALBUMIN/GLOBULIN RATIO 1.8 (1.0-2.2); BILIRUBIN,TOTAL 0.7 mg/dL (0.2-1.0); CALCIUM 9.4 mg/dL (8.5-10.3); CREATININE 0.6 mg/dL (0.4-1.0)
[2020-07-05 03:21] VITALS: BP 113/84
--- NOTE | 2020-07-05 10:42 | Ultrasound Report ---
PROCEDURE: Abdomen Limited INDICATIONS: awoke upper abd/chest pain into back TECHNIQUE: Real-time scanning was performed of the abdominal and retroperitoneal organs, with image documentatio n. COMPARISON: None. FINDINGS: Liver: Liver is normal in size and homogeneous in echotexture. Gallbladder: Gallbladder demonstrates no stones. Wall thickness is within normal limits measuring 2. 3 mm. Biliary ducts: Intrahepatic bile ducts are non-dilated. Extrahepatic bile duct caliber measures 4.0 mm. Normal is 6-7 mm or less in diameter, or 10 mm or less post-cholecystectomy. Pancreas: Visualized portions of the pancreas are sonographically normal. Kidneys: Right kidney measures 9.6 cm long. No hydronephrosis or nephrolithiasis. No solid masses. IVC: Intrahepatic inferior vena cava is patent. IMPRESSION: Unremarkable exam. The above findings are concordant with preliminary report. . Reviewed by: Barby Salas MD on 07/05/2020 10:40 AM [facility] Approved by: Barby Salas MD on 07/05/2020 10:40 AM PST Station ID: [id number]
== END 2020-07-05 03:29 | disposition home or self-care (01) ==
LOC: ED 01:25
DX: R10.13 Epigastric pain (principal); R07.89 Other chest pain; R06.02 Shortness of breath; K21.9 Gastro-esophageal reflux disease without esophagitis
CPT/HCPCS: 36415; 76705; 80053; 83690; 85025; 93005; 99284; A9270